=== PATIENT | male | born 1970 | race Caucasian/White ===

== ENCOUNTER 2020-10-11 12:06 | Emergency (ER) | payer OTHER ==
[2020-10-11 18:13] LABS: HEMOGLOBIN 15.8 gm/dl (14.0-17.5); WHITE BLOOD COUNT 12.1 K/UL (4.5-11.0)
[2020-10-11 18:35] LABS: BUN/CREATININE RATIO 16 (0-10)
== END 2020-10-11 22:13 | disposition home or self-care (01) ==
LOC: ER1 12:06
PROVIDERS: Emergency Medicine
DX: R10.31 Right lower quadrant pain (principal); N50.811 Right testicular pain
CPT/HCPCS: 76870; 80053; 81001; 83690; 85025; 99284; J7030; Q9967

== ENCOUNTER 2021-05-01 05:35 | Emergency (ER) | payer OTHER ==
[2021-05-01 06:54] LABS: HEMOGLOBIN 14.9 gm/dl (14.0-17.5); RED BLOOD COUNT 4.94 M/UL (4.20-5.50); WHITE BLOOD COUNT 13.2 K/UL (4.5-11.0)
[2021-05-01 07:00] LABS: BUN/CREATININE RATIO 16 (0-10)
== END 2021-05-01 08:28 | disposition home or self-care (01) ==
LOC: ER1 05:35
PROVIDERS: Family Medicine
DX: K40.90 Unilateral inguinal hernia, without obstruction or gangrene, not specified as recurrent (principal)
CPT/HCPCS: 71045; 80053; 81001; 83690; 85025; 96374; 96375; 99283; J2270; J2405